=== PATIENT | female | born 2000 | race Caucasian/White ===

== ENCOUNTER 2020-10-04 13:59 | Emergency (ER) | payer BC ==
[~2020-10-04] VITALS: Ht 172.7 cm; Wt 68.2 kg
[2020-10-04 14:34] VITALS: BP 136/92; TEMP 97.8
[2020-10-04] MEDS ORDERED: OMNICEF 300MG300 MG PO (18:55)
[2020-10-04 19:06] VITALS: PULSE 88
== END 2020-10-04 19:08 | disposition home or self-care (01) ==
LOC: COL.ER 13:59
DX: J02.9 Acute pharyngitis, unspecified (principal); Z20.828 Contact with and (suspected) exposure to other viral communicable diseases; Z88.0 Allergy status to penicillin